=== PATIENT | female | born 2000 | race Caucasian/White ===

== ENCOUNTER → 2021-08-26 | Outpatient (CLI) | payer BC ==
--- NOTE | 2021-08-26 16:02 | Diagnostic Imaging Report ---
INDICATION: anatomy survey. TECHNIQUE: Multiple real-time grayscale images were obtained over the gravid uterus. COMPARISON: None. FINDINGS: The cervix measures 4.4 cm and is closed. The placenta is posteriorly located, and there are no features of previa. The amount of amniotic fluid appears visually appropriate. The following anatomy is visualized and normal: Spine, kidneys, urinary bladder, three-vessel cord, lips/nose, cerebellum, cisterna magna, cerebral ventricles, umbilical cord insertion, and four-chamber heart. Biometrical measurements are as follows: Biparietal 4.35 cm, age 19 weeks 2 days. Head circumference 17.53 cm, age 20 weeks 1 days. Abdominal circumference 14.74 cm, age 20 weeks 1 days. Femur length 3.23 cm, age 20 weeks 1 days. Sonographic estimate age: 20 weeks 0 days. Sonographic estimated date of delivery: 01/12/2022. Estimated Weight: 327 gm (+/- 48 gm). LMP percentile: 38%. heart rate: 156 beats per minute. number: 1 of 1. IMPRESSION: Single live intrauterine has normal anatomy survey. Dictated by: Dictated on workstation # [id number]
== END ==
LOC: RAD 12:30
PROVIDERS: ATTEND Nurse Practitioner Women's Health
DX: Z34.02 Encounter for supervision of normal first pregnancy, second trimester (principal)
CPT/HCPCS: 76805

== ENCOUNTER 2022-01-09 07:00 | Inpatient (IN) | payer BC ==
[~2022-01-09] VITALS: Ht 172.7 cm; Wt 77.0 kg
[2022-01-09] VITALS (71 sets, daily range): BP systolic 84–137; BP diastolic 51–81
[2022-01-09] MEDS ORDERED: AMPICILLIN FOR IV USE 2,000 MG in WATER (STERILE) FOR INJECTION 14.8 ML IV NR (07:45)
[2022-01-09] MEDS ORDERED: OXYTOCIN PRE-MIX DRIP 500 ML IV SCH (07:45)
[2022-01-09 07:47] LABS: BASOPHILS % (AUTO) 1 % (0-10); EOSINOPHILS # (AUTO) 0.1 10^3/uL (0.0-0.3); EOSINOPHILS % (AUTO) 1 % (0-10); HEMATOCRIT 28 % (35-52); HEMOGLOBIN 9.4 g/dL (11.5-16.0); LYMPHOCYTES # (AUTO) 2.1 10^3/uL (1.0-4.0); LYMPHOCYTES % (AUTO) 31 % (12-44); MEAN CORPUSCULAR HEMOGLOBIN 29 pg (25-34); MEAN CORPUSCULAR HGB CONC 34 g/dL (32-36); MEAN CORPUSCULAR VOLUME 86 fL (80-99); MEAN PLATELET VOLUME 12.4 fL (9.0-12.2); MONOCYTES # (AUTO) 0.4 10^3/uL (0.0-1.0); MONOCYTES % (AUTO) 6 % (0-12); NEUTROPHILS % (AUTO) 61 % (42-75); PLATELET COUNT 136 10^3/uL (130-400); WHITE BLOOD COUNT 6.7 10^3/uL (4.3-11.0)
[2022-01-09] MEDS: D5 LR IV SOLUTION 1,000 ML IV SCH ×2 (07:58→16:12)
[2022-01-09] MEDS ORDERED: PNV11TAB5 PO (08:17)
[2022-01-09] MEDS ORDERED: CEPH500C PO (08:17)
--- NOTE | 2022-01-09 09:20 | History & Physical ---
History and Physical Date Seen by Provider: January 09, 2022 Time Seen by Provider: 09:18 This patient is a 21-year-old 1 female currently at 39-4/7 weeks gestation. She was admitted for induction of labor electively. Her GBS culture was positive and she will labor under the protection of ampicillin for GBS prophylaxis. Patient denies rupture membranes or bleeding. She has had no problems with this . Allergies are none Medications are vitamins Medical social and surgical history is are per the antepartum record HEENT exam is normal Neck is supple no lymphadenopathy no thyromegaly Abdomen is gravid soft nontender nondistended Extremities show no clubbing cyanosis. There is no Homans' sign. Pelvic exam per the admitting nurse shows a cervix fingertip and thick with a vertex presentation at about the -2 station Laboratory Tests Test 01/09/22 07:25 Range/Units White Blood Count 6.7 4.3-11.0 10^3/uL Red Blood Count 3.23 L 3.80-5.11 10^6/uL Hemoglobin 9.4 L 11.5-16.0 g/dL Hematocrit 28 L 35-52 % Mean Corpuscular Volume 86 80-99 fL Mean Corpuscular Hemoglobin 29 25-34 pg Mean Corpuscular Hemoglobin Concent 34 32-36 g/dL Red Cell Distribution Width 13.2 10.0-14.5 % Platelet Count 136 130-400 10^3/uL Mean Platelet Volume 12.4 H 9.0-12.2 fL Immature Granulocyte % (Auto) 1 % Neutrophils (%) (Auto) 61 42-75 % Lymphocytes (%) (Auto) 31 12-44 % Monocytes (%) (Auto) 6 0-12 % Eosinophils (%) (Auto) 1 0-10 % Basophils (%) (Auto) 1 0-10 % Neutrophils # (Auto) 4.0 1.8-7.8 10^3/uL Lymphocytes # (Auto) 2.1 1.0-4.0 10^3/uL Monocytes # (Auto) 0.4 0.0-1.0 10^3/uL Eosinophils # (Auto) 0.1 0.0-0.3 10^3/uL Basophils # (Auto) 0.0 0.0-0.1 10^3/uL Immature Granulocyte # (Auto) 0.0 0.0-0.1 10^3/uL Patient is has borderline thrombocytopenia lab work is otherwise unremarkable Assessment and plan Term at 39+ weeks gestation admitted for labor induction electively. Patient has been started on ampicillin for GBS prophylaxis. We anticipate a vaginal delivery but would be prepared for if needed 39 weeks with a GBS positive culture admitted for induction of labor Allergies and Home Medications Allergies Coded Allergies: No Known Allergies (Verified Allergy, Unknown, 11/02/05) Patient Home Medication List Home Medication List Reviewed: Yes Cephalexin (Cephalexin) 500 Mg Capsule, 500 MG PO BID, (Reported) Entered as Reported by: DAVID THOMPSON on 01/09/22816 Last Action: Edited Gdi679/FA/Omega3/Dha/Fish Oil ( Gummies) 400 Mcg-32.5 Mg (25 Mg-7.5 Mg) Tab.chew, 2 EACH PO DAILY, (Reported) Entered as Reported by: DAVID THOMPSON on 01/09/22816 Last Action: New Order ULISES ADAME MD January 09, 2022 09:20
[2022-01-09] MEDS: AMPICILLIN FOR IV USE 1,000 MG in WATER (STERILE) FOR INJECTION 7.4 ML IV SCH ×3 (12:21→20:13)
[2022-01-09] MEDS ORDERED: BUPIVACAINE 0.25% 10 ML (SENSORCAINE) VIAL ONE (16:50)
[2022-01-09] MEDS ORDERED: fentaNYL INJ 100 MCG/2 ML AMP ONE (16:50)
[2022-01-09] MEDS ORDERED: fentaNYL 2 mcg/ml BUPIVA 0.125 100 ML ONE (16:53)
[2022-01-09] MEDS ORDERED: LACTATED RINGERS 1,000 ML IV ONE (17:00)
[2022-01-09] MEDS ORDERED: CATHETER FLUSH 10 ML SYR IV PRN (17:00)
[2022-01-09] MEDS ORDERED: NALOXONE 0.4 MG/ML 1 ML (NARCAN) VIAL IV PRN (17:00)
[2022-01-09] MEDS: fentaNYL 2 mcg/ml BUPIVA 0.125 100 ML IV SCH (17:34)
[2022-01-09] MEDS ORDERED: ONDANSETRON 4 MG/2 ML (SDV) Z0FRAN IVP PRN (18:45)
[2022-01-09] MEDS ORDERED: ONDANSETRON 4 MG/2 ML (SDV) Z0FRAN ONE (18:45)
[2022-01-10] VITALS (34 sets, daily range): BP systolic 85–125; BP diastolic 53–75
[2022-01-10] MEDS: AMPICILLIN FOR IV USE 1,000 MG in WATER (STERILE) FOR INJECTION 7.4 ML IV SCH ×2 (00:01→04:04)
[2022-01-10] MEDS: fentaNYL 2 mcg/ml BUPIVA 0.125 100 ML IV SCH (00:44)
[2022-01-10] MEDS: D5 LR IV SOLUTION 1,000 ML IV SCH (02:00)
[2022-01-10] MEDS ORDERED: LIDOCAINE/EPI 2% 1:200,00 (XYLOCAINE) 10 ML VIAL ONE (03:57)
[2022-01-10] MEDS ORDERED: BENZOCAINE/MENTHOL (DERMOPLAST) 56 ML CAN TP ONE (05:43)
[2022-01-10] MEDS ORDERED: WITCH HAZEL(TUCKS) 40 EA JAR ONE (05:43)
[2022-01-10] MEDS ORDERED: IBUPROFEN 800 MG (MOTRIN) TAB PO ONE (06:45)
[2022-01-10] MEDS ORDERED: oxyCODONE/APAP 5/325MG (PERCOCET 5) TABLET PO PRN (07:00)
[2022-01-10] MEDS ORDERED: TETANUS,DIPTH,PERTUSS P/F (BOOSTRIX) 0.5 ML VIAL IM ONE (07:00)
[2022-01-10] MEDS ORDERED: KETOROLAC 30 MG/ML VIAL IVP SCH (07:00)
[2022-01-10] MEDS ORDERED: BENZOCAINE/MENTHOL (DERMOPLAST) 56 ML CAN TP PRN ×2 (07:00)
[2022-01-10] MEDS ORDERED: WITCH HAZEL(TUCKS) 40 EA JAR TOP PRN (07:00)
[2022-01-10] MEDS ORDERED: ONDANSETRON 4 MG/2 ML (SDV) Z0FRAN IVP PRN (07:00)
[2022-01-10] MEDS ORDERED: DIBUCAINE 1% OINTMENT 30 GM TUBE TOP PRN (07:00)
[2022-01-10] MEDS ORDERED: OXYTOCIN PRE-MIX DRIP 500 ML IV SCH (07:00)
--- NOTE | 2022-01-10 09:49 | Anesthesia-Regional Post-Op ---
Regional Patient Condition Mental Status: Alert, Oriented x3 Circulation: Same as Pre-Op Headache: Absent Sensation: Full Recovery Motor Block: Absent Post Op Complications Complications None Follow Up Care/Instructions Patient Instructions None needed. Anesthesia/Patient Condition Patient is doing well, no complaints, stable vital signs, no apparent adverse anesthesia problems. No complications reported per nursing. D/C home per [facility] [place] Criteria: Yes PADDY CASTANEDA CRNA January 10, 2022 09:49
--- NOTE | 2022-01-10 11:14 | OPERATIVE REPORT ---
DATE OF SERVICE: 01/10/2022 DELIVERY NOTE The patient delivered by term spontaneous vaginal delivery a viable female infant with Apgars of 9 and 9, weight of 8 pounds 1 ounce. Cord blood pH is pending and a time of 0513. Delivery was accomplished over a second-degree perineal and vaginal laceration that occurred just after as perineotomy was initiated under epidural augmented with local analgesia. The delivered promptly after the laceration occurred and was bulb suctioned on delivery of the head and again on completion of delivery. The umbilical cord when pulseless was doubly clamped, the father cut the cord, the baby was passed to mom's abdomen. Cord bloods were obtained. The placenta delivered spontaneously Gonzalez. It was normal with a 3-vessel cord. The cervix, vagina, rectum, and perineum were examined and found intact, except for the extension of the perineal defect, which comprised a second-degree tear about third of the way up the posterior vaginal wall and down to the sphincter capsule, but not into the sphincter capsule. The defect was repaired with a single suture of 3-0 Rapide Vicryl in the usual manner without difficulty, good hemostasis and good reapproximation. Sponge and needle counts were correct on completion of delivery and repair. Blood loss was around 200 mL. Sponge and needle counts were complete. The patient tolerated the delivery and repair well and remained in the LDR. The baby remained with the mom. Job ID: [id number] DocumentID: [id number] Dictated Date: 01/10/2022 05:40:25 Free Lance Model Date: 01/10/2022 11:13:56 Dictated By: ULISES ADAME MD MTDD
--- NOTE | 2022-01-10 11:49 | Progress Note ---
Standard Progress Note Progress Notes/Assess & Plan Date Seen by a Provider: January 10, 2022 Time Seen by a Provider: 11:48 Progress/Assessment & Plan This patient is without complaint. She is ambulating, voiding, tolerating oral intake well has good pain control. She delivered just after 5 AM this morning and is doing well Vital Signs 01/10/22 01/10/22 05:00 06:30 Temp 36.8 Pulse 75 Resp 18 B/P (MAP) 102/66 (78) Pulse Ox 100 O2 Delivery Room Air Vital signs are stable. Patient afebrile. Fundus is firm below the umbilicus and nontender. Extremities show no clubbing or cyanosis. There is no Homans' sign. Assessment and plan day 0 doing well. Patient had a uncomplicated delivery early this morning. She will have routine convalescent care ULISES ADAME MD January 10, 2022 11:49
[2022-01-10] MEDS ORDERED: DOCU100C37 PO (11:51)
[2022-01-10] MEDS ORDERED: OXYC1TAB87 PO (11:51)
[2022-01-10] MEDS ORDERED: IBUP-1780 PO (11:51)
--- NOTE | 2022-01-10 11:53 | Discharge Inst-Surgical ---
Discharge Inst-Surgical Depart Medication/Instructions New, Converted or Re-Newed RX: Other Consults/Follow Up Patient Instructions: As directed Orders & Referrals Follow Up Appt: Call to make follow up appt. for patient in 4 weeks. Activity Per routine post vaginal delivery instructions. Diet as tolerated Patient may shower or tub bathe as desired. Activity Activity as Tolerated: No Diet Discharge Diet: No Restrictions ULISES ADAME MD January 10, 2022 11:53
[2022-01-10] MEDS ORDERED: IBUPROFEN 800 MG (MOTRIN) TAB PO SCH (12:00)
[2022-01-10] MEDS: DOCUSATE SODIUM 100 MG (COLACE) CAP PO SCH (15:15)
[2022-01-10] MEDS: IBUPROFEN 800 MG (MOTRIN) TAB PO SCH (18:11)
[2022-01-11] MEDS: IBUPROFEN 800 MG (MOTRIN) TAB PO SCH ×3 (01:03→11:43)
[2022-01-11 01:06] VITALS: BP 106/59
[2022-01-11] MEDS: DOCUSATE SODIUM 100 MG (COLACE) CAP PO SCH (06:01)
[2022-01-11 06:06] VITALS: BP 108/59
[2022-01-11 08:00] VITALS: BP 111/72
[2022-01-11] MEDS ORDERED: MEASLES,MUMPS,RUBELLA 1 EA INJ SC ONE (08:30)
--- NOTE | 2022-01-11 09:58 | Progress Note ---
Standard Progress Note Progress Notes/Assess & Plan Date Seen by a Provider: January 11, 2022 Time Seen by a Provider: 09:56 Progress/Assessment & Plan This patient is without complaint. She is ambulating, voiding, tolerating oral intake well has good pain control. She delivered just after 5 AM this morning and is doing well Vital Signs 01/10/22 01/10/22 05:00 06:30 Temp 36.8 Pulse 75 Resp 18 B/P (MAP) 102/66 (78) Pulse Ox 100 O2 Delivery Room Air Vital signs are stable. Patient afebrile. Fundus is firm below the umbilicus and nontender. Extremities show no clubbing or cyanosis. There is no Homans' sign. Assessment and plan day 0 doing well. Patient had a uncomplicated delivery early this morning. She will have routine convalescent care January 11, 2022 Patient is without complaint. She is ambulating, voiding, tolerating oral intake and has good pain control. Patient is requesting discharge home. Vital Signs Date Time Temp Pulse Resp B/P (MAP) Pulse Ox O2 Delivery O2 Flow Rate FiO2 01/11/22 06:06 85 16 108/59 (75) 100 Room Air 01/11/22 01:06 36.5 71 18 106/59 (75) 98 Room Air 01/10/22 20:45 36.5 63 18 100/60 (73) 100 Room Air 01/10/22 17:00 36.7 73 18 120/75 (90) 100 Room Air 01/10/22 12:30 37.2 81 18 100/61 (74) 98 Room Air I & O 01/11/22 07:00 Intake Total 1500 ml Balance 1500 ml Vital signs are stable. Patient is afebrile. Fundus is firm below the umbilicus and nontender. Extremities show no clubbing or cyanosis. There is no Homans' sign. Assessment and plan day #1 status post term spontaneous vaginal livery doing well. Plan is for discharge Final Diagnosis 39-week spontaneous vaginal delivery ULISES ADAME MD January 11, 2022 09:57
--- NOTE | 2022-01-11 09:59 | Progress Note ---
Standard Progress Note Progress Notes/Assess & Plan Date Seen by a Provider: January 11, 2022 Time Seen by a Provider: 09:58 Progress/Assessment & Plan This patient is without complaint. She is ambulating, voiding, tolerating oral intake well has good pain control. She delivered just after 5 AM this morning and is doing well Vital Signs 01/10/22 01/10/22 05:00 06:30 Temp 36.8 Pulse 75 Resp 18 B/P (MAP) 102/66 (78) Pulse Ox 100 O2 Delivery Room Air Vital signs are stable. Patient afebrile. Fundus is firm below the umbilicus and nontender. Extremities show no clubbing or cyanosis. There is no Homans' sign. Assessment and plan day 0 doing well. Patient had a uncomplicated delivery early this morning. She will have routine convalescent care January 11, 2022 Patient is without complaint. She is ambulating, voiding, tolerating oral intake and has good pain control. Patient is requesting discharge home. Vital Signs Date Time Temp Pulse Resp B/P (MAP) Pulse Ox O2 Delivery O2 Flow Rate FiO2 01/11/22 06:06 85 16 108/59 (75) 100 Room Air 01/11/22 01:06 36.5 71 18 106/59 (75) 98 Room Air 01/10/22 20:45 36.5 63 18 100/60 (73) 100 Room Air 01/10/22 17:00 36.7 73 18 120/75 (90) 100 Room Air 01/10/22 12:30 37.2 81 18 100/61 (74) 98 Room Air I & O 01/11/22 07:00 Intake Total 1500 ml Balance 1500 ml Vital signs are stable. Patient is afebrile. Fundus is firm below the umbilicus and nontender. Extremities show no clubbing or cyanosis. There is no Homans' sign. Assessment and plan day #1 status post term spontaneous vaginal livery doing well. Plan is for discharge January 12, 2020 Patient is without complaint. She is ambulating, voiding, tolerating oral intake well and has good pain control. Patient is requesting discharge home. Vital Signs Date Time Temp Pulse Resp B/P (MAP) Pulse Ox O2 Delivery O2 Flow Rate FiO2 01/11/22 06:06 85 16 108/59 (75) 100 Room Air 01/11/22 01:06 36.5 71 18 106/59 (75) 98 Room Air 01/10/22 20:45 36.5 63 18 100/60 (73) 100 Room Air 01/10/22 17:00 36.7 73 18 120/75 (90) 100 Room Air 01/10/22 12:30 37.2 81 18 100/61 (74) 98 Room Air I & O 01/11/22 07:00 Intake Total 1500 ml Balance 1500 ml Vital signs are stable. Patient is afebrile. Fundus is firm below the umbilicus and nontender. Extremities show no clubbing or cyanosis. There is no Homans' sign. Assessment and plan day #2 status post spontaneous vaginal delivery doing well. Plan is to discharge home Final Diagnosis 36-week spontaneous vaginal delivery ULISES ADAME MD January 11, 2022 09:59
[2022-01-11 12:50] VITALS: BP 111/72
== END 2022-01-11 12:50 | disposition home or self-care (01) | DRG 807 ==
LOC: LDRP 07:08
PROVIDERS: ADMIT Obstetrics & Gynecology; ATTEND Obstetrics & Gynecology
PROC: 3E033VJ Introduction of Other Hormone into Peripheral Vein, Percutaneous Approach (ICD-10-PCS; 2022-01-09)
PROC: 10E0XZZ Delivery of Products of Conception, External Approach (ICD-10-PCS; principal; 2022-01-10)
PROC: 0KQM0ZZ Repair Perineum Muscle, Open Approach (ICD-10-PCS; 2022-01-10)
DX: O99.824 Streptococcus B carrier state complicating childbirth (principal); Z37.0 Single live birth; O70.1 Second degree perineal laceration during delivery; Z3A.39 39 weeks gestation of pregnancy; Z23 Encounter for immunization
CPT/HCPCS: 36415; 85025; 86850; 86900; 86901; 90707

== ENCOUNTER → 2022-09-09 | Outpatient (CLI) | payer BC ==
[~2022-09-09] MED LIST: CEPH500C PO; DOCU100C37 PO; IBUP-1780 PO; OXYC1TAB87 PO; PNV11TAB5 PO
--- NOTE | 2022-09-09 16:01 | Diagnostic Imaging Report ---
INDICATION: Anatomy scan. TECHNIQUE: Multiple real-time grayscale images were obtained over the gravid uterus. COMPARISON: None FINDINGS: There is a single live fetus in a cephalic presentation. heart rate was recorded 147 bpm. Placenta is posterior. No previa is detected. Amniotic fluid index is 8.1 cm. Cervical length is 4.6 cm. survey demonstrates kidneys, bladder and stomach. brains unremarkable. There is a four-chamber heart. There is a three-vessel cord with normal insertion. spine is unremarkable. Biometrical measurements are as follows: Biparietal 4.68 cm, age 20 weeks 2 days. Head circumference 18.22 cm, age 20 weeks 5 days. Abdominal circumference 15.21 cm, age 20 weeks 3 days. Femur length 3.20 cm, age 20 weeks 0 days. Sonographic estimate age: 20 weeks 3 days. Sonographic estimated date of delivery: 01/24/2023. Estimated Weight: 342 gm (+/- 50 gm). LMP percentile: 51%. heart rate: 147 beats per minute. number: 1 of 1. IMPRESSION: Single live IUP 20 weeks 3 days gestational age. Estimated confinement sonographically is 01/24/2023. Dictated by: Dictated on workstation # [id number]
== END ==
LOC: RAD 11:45
PROVIDERS: ATTEND Obstetrics & Gynecology
DX: Z34.82 Encounter for supervision of other normal pregnancy, second trimester (principal); Z3A.20 20 weeks gestation of pregnancy
CPT/HCPCS: 76805